=== PATIENT | female | born 1975 | race Caucasian/White ===

== ENCOUNTER 2017-03-23 00:41 | Emergency (ER) | payer OTHER, MEDICAID ==
[~2017-03-23] VITALS: Ht 170.2 cm; Wt 97.5 kg
[~2017-03-23 00:41] MED LIST: ACETAMINOPHEN-1 EAC1 PO; ACETAMINOPHEN325 M1 PO; ACTICIN 5% CREA60 G1 TOP; ADULT LOW DOSE81 MG PO; AFRIN SALINE NA30 ML NS; ALPRAZOLAM 0.50.5 M1; ALPRAZOLAM 0.50.5 M1 PO; ALPRAZOLAM 0.50.5 MG; ALPRAZOLAM0.5 M1; AMITRIPTYLINE H10 M1 PO; AMLODIPINE BESY10 MG; ARTHRITIS; ASPIR 8181 M1 PO; ASPIRIN EC81 M1; ASPIRIN EC81 M1 PO; ASPIRIN325; AURALGAN EAR DR14 ML; BACTROBAN CREAM30 G1 TOP; BENADRYL25 MG PO; BLOOD PRESSURE MEDS; BUTALB-APAP-CA1 EACH PO; CALCIUM 500 +1 EAC5; CALCIUM 500+VI1 EACH; CAPOTEN100 MG PO; CARAFATE1 GM/10 ML PO; CARISOPRODOL 3350 M1; CARVEDILOL12.5 MG; CATAPRES-TTS 10.1 M1; CATAPRES-TTS 10.1 MG; CATAPRES-TTS 20.2 MG; CEPHALEXIN 250250 M1; CEPHALEXIN 500500 M1; CHLORTHALIDONE25 MG; CIPRO500 MG PO; CIPROFLOXACIN250 M2; CIPROFLOXACIN500 M1 PO; CITRATE OF MAG296 ML; CLEOCIN HCL150 MG PO; CLEOCIN HCL300 MG PO; CLINDAMYCIN; CLONIDINE HCL0.2 M2 PO; CLONIDINE PO; CLONIDINE0.1; COLACE100 MG PO; COREG CR20 MG; COREG25 MG PO; CYCLOBENZAPRINE5 MG PO; DARVOCET-N 1001 EAC1 PO; DELTASONE; DEPAKOTE ER250 MG PO; DIFLUCAN150 MG PO; DILTIAZEM 24HR300 M1; DITROPAN XL5 M1; DITROPAN XL5 M1 PO; DOXYCYCLINE; DOXYCYCLINE 10100 MG PO; DYNACIN100 MG PO; FENOFIBRATE160 MG; FLAGYL500 MG PO; FLEXERIL PO; GLUCOPHAGE XR500 MG; GLUCOPHAGE500 MG; GOLYTELY4000 M1 PO; HIBICLENS120 ML TP; HYDRALAZINE 10M10 MG GT; HYDRALAZINE 2525 M1 PO; HYDRALAZINE 5050 M1 PO; HYDRALAZINE 5050 MG PO; HYDRALAZINE HC100 MG; HYDROCHLOROTH12.5 MG PO; HYDROCHLOROTHIA25 M1 PO; HYDROCHLOROTHIA25 M2; HYDROCHLOROTHIA25 M2 PO; HYDROCODONE-AP1 EAC6 PO; HYDROXYCHLOROQ200 M1; HYDROXYCHLOROQ200 M1 PO; HYDROXYZINE HCL25 M1 PO; IBUPROFEN 800800 MG PO; KEFLEX500 M1 PO; KEFLEX500 MG PO; KLOR-CON M2020 MEQ PO; LEVAQUIN; LEVAQUIN 500 M500 M2 PO; LEVAQUIN 500 M500 MG PO; LEXAPRO 10 MG T10 MG PO; LISINOPRIL40 MG; LISINOPRIL40 MG PO; LITHIUM; LITHOBID; MACROBID 100 M100 M1 PO; MEDROLDOSEPACK PO; MIRALAX17 GM PO; MOBIC7.5 M1 PO; NASONEX17 GM; NASONEX17 GM NS; NEURONTIN 300300 M1; NEURONTIN 300300 M1 PO; NEXIUM 40 MG CA40 M1; NEXIUM40 MG; NICOTINE TRANSD14 M1 TOP; NORCO 5-325 TA1 EACH PO; NORVASC10 MG; NORVASC5 MG; NYSTATIN 1100000 U/M PO; OCEAN45 ML NS; ORAPRED ODT10 MG; OXYBUTYNIN ER 55 M1; PERCOCET 5-3251 EACH PO; PHENAZOPYRIDIN200 M2 PO; POTASSIUM20 PO; PREDNISOLONE 5 M5 M1 PO; PREDNISONE 10 M10 M1; PREDNISONE 10 M10 M1 PO; PREDNISONE 20 M20 M1; PREDNISONE 20 M20 M1 PO; PREDNISONE50 MG PO; PROAIR HFA8.5 GM; PROAIR HFA8.5 GM IH; PROMETHAZINE/C118 ML; PROPOXY-N/APAP1 TAB; PROTONIX40 M2 PO; SERTRALINE HCL50 MG; SIMVASTATIN20 MG; SIMVASTATIN40 MG; SOMA250 MG; STERILE SALINE126 ML NASAL; TESSALON PERLE100 MG; TESSALON PERLE100 MG PO; TREXALL5 MG; ULTRACET TABLE1 EACH PO; VICODIN; VICODIN 5-5001 EACH; VICODIN 5-5001 EACH PO; XANAX 0.5 MG0.5 M1; XANAX 0.5 MG0.5 MG PO; ZOCOR 20 MG TAB20 M1; ZOCOR 20 MG TAB20 M1 PO; ZOFRAN4 MG PO; ZOLOFT; ZOLOFT 50 MG TA50 M1; ZPAK PO; [UNRECOGNIZED DRUG - OTHER] PO
[2017-03-23] MEDS ORDERED: POTASSIUM20 (00:55)
[2017-03-23] MEDS ORDERED: ULTRAM 50MG TAB50 MG (00:56)
[2017-03-23 01:48] LABS: INFLUENZA A ANTIGEN None Detected (None Detect); INFLUENZA B ANTIGEN None Detected (None Detect)
[2017-03-23] MEDS ORDERED: TESSALON PERLE100 MG PO (01:51)
[2017-03-23] MEDS ORDERED: ZOFRAN ODT4 MG PO (01:51)
[2017-03-23 02:33] VITALS: BP 137/81
== END 2017-03-23 02:33 | disposition home or self-care (01) ==
LOC: M.ERS 00:41
PROVIDERS: Emergency Medicine Emergency Medical Services
DX: B34.9 Viral infection, unspecified (principal); I10 Essential (primary) hypertension; I25.2 Old myocardial infarction; F32.9 Major depressive disorder, single episode, unspecified; M32.9 Systemic lupus erythematosus, unspecified; F17.210 Nicotine dependence, cigarettes, uncomplicated; Z98.890 Other specified postprocedural states; Z86.73 Personal history of transient ischemic attack (TIA), and cerebral infarction without residual deficits; Z90.710 Acquired absence of both cervix and uterus; Z88.1 Allergy status to other antibiotic agents; Z88.2 Allergy status to sulfonamides; Z88.0 Allergy status to penicillin

== ENCOUNTER 2017-04-17 20:05 | Emergency (ER) | payer OTHER, MEDICAID ==
[~2017-04-17] VITALS: Ht 170.2 cm; Wt 99.8 kg
[~2017-04-17 20:05] MED LIST changes: +POTASSIUM20; +ULTRAM 50MG TAB50 MG; +ZOFRAN ODT4 MG PO
[2017-04-17 22:00] VITALS: BP 131/86
== END 2017-04-17 22:00 | disposition home or self-care (01) ==
LOC: M.ERS 20:05
DX: L91.8 Other hypertrophic disorders of the skin (principal); I10 Essential (primary) hypertension; M32.9 Systemic lupus erythematosus, unspecified; F32.9 Major depressive disorder, single episode, unspecified; L40.9 Psoriasis, unspecified; F17.210 Nicotine dependence, cigarettes, uncomplicated; Z86.73 Personal history of transient ischemic attack (TIA), and cerebral infarction without residual deficits; Z90.89 Acquired absence of other organs; Z86.14 Personal history of Methicillin resistant Staphylococcus aureus infection; Z90.49 Acquired absence of other specified parts of digestive tract; Z88.1 Allergy status to other antibiotic agents; Z88.0 Allergy status to penicillin; Z88.2 Allergy status to sulfonamides

== ENCOUNTER 2017-04-27 22:10 | Emergency (ER) | payer OTHER, MEDICAID ==
[~2017-04-27] VITALS: Ht 170.2 cm; Wt 99.8 kg
[2017-04-28 00:04] VITALS: BP 138/62
== END 2017-04-28 00:05 | disposition home or self-care (01) ==
LOC: M.ERS 22:10
DX: R51 Headache (principal); F17.210 Nicotine dependence, cigarettes, uncomplicated; F10.99 Alcohol use, unspecified with unspecified alcohol-induced disorder; I10 Essential (primary) hypertension; I25.2 Old myocardial infarction; F32.9 Major depressive disorder, single episode, unspecified; Z86.14 Personal history of Methicillin resistant Staphylococcus aureus infection; Z90.710 Acquired absence of both cervix and uterus; Z98.890 Other specified postprocedural states; Z88.2 Allergy status to sulfonamides; Z88.0 Allergy status to penicillin; Z88.1 Allergy status to other antibiotic agents; Z90.49 Acquired absence of other specified parts of digestive tract

== ENCOUNTER 2017-07-04 13:00 | Emergency (ER) | payer OTHER, MEDICAID ==
[~2017-07-04] VITALS: Ht 170.2 cm; Wt 104.3 kg
[2017-07-04] MEDS ORDERED: WELLBUTRIN XL300 MG PO (13:10)
[2017-07-04] MEDS ORDERED: KEFLEX500 M1 PO (13:12)
[2017-07-04 13:16] VITALS: BP 184/103
== END 2017-07-04 13:18 | disposition home or self-care (01) ==
LOC: M.ERS 13:00
DX: K08.89 Other specified disorders of teeth and supporting structures (principal); I21.9 Acute myocardial infarction, unspecified; F31.9 Bipolar disorder, unspecified; I10 Essential (primary) hypertension; F17.210 Nicotine dependence, cigarettes, uncomplicated; Z90.710 Acquired absence of both cervix and uterus; Z90.49 Acquired absence of other specified parts of digestive tract; Z86.73 Personal history of transient ischemic attack (TIA), and cerebral infarction without residual deficits; Z86.14 Personal history of Methicillin resistant Staphylococcus aureus infection; Z88.0 Allergy status to penicillin; Z88.1 Allergy status to other antibiotic agents

== ENCOUNTER 2017-10-26 22:10 | Emergency (ER) | payer OTHER, MEDICAID ==
[~2017-10-26] VITALS: Ht 170.2 cm; Wt 104.3 kg
[~2017-10-26 22:10] MED LIST changes: +WELLBUTRIN XL300 MG PO
[2017-10-26] MEDS ORDERED: DOXYCYCLINE 10100 M1 PO (22:48)
[2017-10-26 23:47] VITALS: BP 120/65
== END 2017-10-26 23:50 | disposition home or self-care (01) ==
LOC: M.ERS 22:10
DX: N61.1 Abscess of the breast and nipple (principal); H66.93 Otitis media, unspecified, bilateral; I10 Essential (primary) hypertension; F32.9 Major depressive disorder, single episode, unspecified; M32.9 Systemic lupus erythematosus, unspecified; F17.210 Nicotine dependence, cigarettes, uncomplicated; Z86.73 Personal history of transient ischemic attack (TIA), and cerebral infarction without residual deficits; Z90.710 Acquired absence of both cervix and uterus; Z90.49 Acquired absence of other specified parts of digestive tract; Z86.14 Personal history of Methicillin resistant Staphylococcus aureus infection; Z88.0 Allergy status to penicillin; Z88.1 Allergy status to other antibiotic agents; Z88.2 Allergy status to sulfonamides

== ENCOUNTER 2018-01-17 20:32 | Emergency (ER) | payer OTHER, MEDICAID ==
[~2018-01-17] VITALS: Ht 167.6 cm; Wt 104.3 kg
[~2018-01-17 20:32] MED LIST changes: +DOXYCYCLINE 10100 M1 PO
[2018-01-17] MEDS ORDERED: DOXYCYCLINE 10100 M2 PO (21:04)
[2018-01-17] MEDS ORDERED: PROAIR HFA8.5 GM INH (21:04)
[2018-01-17] MEDS ORDERED: TESSALON PERLE100 MG PO (21:04)
[2018-01-17 21:33] VITALS: BP 197/106
== END 2018-01-17 21:35 | disposition home or self-care (01) ==
LOC: M.ERS 20:32
DX: R05 Cough (principal); N73.9 Female pelvic inflammatory disease, unspecified; I10 Essential (primary) hypertension; F32.9 Major depressive disorder, single episode, unspecified; M32.9 Systemic lupus erythematosus, unspecified; Z90.49 Acquired absence of other specified parts of digestive tract; Z90.710 Acquired absence of both cervix and uterus; F17.210 Nicotine dependence, cigarettes, uncomplicated; Z88.0 Allergy status to penicillin; Z88.1 Allergy status to other antibiotic agents; Z88.2 Allergy status to sulfonamides

== ENCOUNTER 2018-01-28 20:01 | Emergency (ER) | payer OTHER, MEDICAID ==
[~2018-01-28] VITALS: Ht 170.2 cm; Wt 104.3 kg
[~2018-01-28 20:01] MED LIST changes: +DOXYCYCLINE 10100 M2 PO; +PROAIR HFA8.5 GM INH
[2018-01-28] MEDS ORDERED: CBD OIL (20:16)
[2018-01-28] MEDS ORDERED: TRIAMCINOLONE A80 G2 TOP (20:49)
[2018-01-28] MEDS ORDERED: DOXYCYCLINE 10100 MG PO (20:49)
[2018-01-28 21:15] VITALS: BP 187/105
== END 2018-01-28 21:16 | disposition home or self-care (01) ==
LOC: M.ERS 20:01
DX: N61.1 Abscess of the breast and nipple (principal); L40.9 Psoriasis, unspecified; I10 Essential (primary) hypertension; F32.9 Major depressive disorder, single episode, unspecified; I25.2 Old myocardial infarction; M32.9 Systemic lupus erythematosus, unspecified; Z90.710 Acquired absence of both cervix and uterus; Z90.49 Acquired absence of other specified parts of digestive tract; F17.210 Nicotine dependence, cigarettes, uncomplicated; Z88.0 Allergy status to penicillin; Z88.2 Allergy status to sulfonamides; Z88.1 Allergy status to other antibiotic agents

== ENCOUNTER 2018-05-05 16:25 | Emergency (ER) | payer OTHER, MEDICAID ==
[~2018-05-05] VITALS: Ht 160 cm; Wt 90.7 kg
[~2018-05-05 16:25] MED LIST changes: +CBD OIL; +TRIAMCINOLONE A80 G2 TOP
[2018-05-05] MEDS ORDERED: CEFDINIR125 MG/5 M PO (17:25)
[2018-05-05] MEDS ORDERED: ROBAXIN 750 MG750 M1 PO (17:28)
[2018-05-05 17:39] VITALS: BP 180/98
== END 2018-05-05 17:40 | disposition home or self-care (01) ==
LOC: M.ERS 16:25
DX: S46.812A Strain of other muscles, fascia and tendons at shoulder and upper arm level, left arm, initial encounter (principal); F17.210 Nicotine dependence, cigarettes, uncomplicated; I10 Essential (primary) hypertension; M32.9 Systemic lupus erythematosus, unspecified; F32.9 Major depressive disorder, single episode, unspecified; Z88.1 Allergy status to other antibiotic agents; Z88.2 Allergy status to sulfonamides; Z88.0 Allergy status to penicillin; Z90.710 Acquired absence of both cervix and uterus; Z90.89 Acquired absence of other organs; Z90.49 Acquired absence of other specified parts of digestive tract; Z86.73 Personal history of transient ischemic attack (TIA), and cerebral infarction without residual deficits; W00.0XXA Fall on same level due to ice and snow, initial encounter; Y92.89 Other specified places as the place of occurrence of the external cause; Y93.89 Activity, other specified; Y99.8 Other external cause status

== ENCOUNTER 2018-06-19 00:26 | Emergency (ER) | payer OTHER, MEDICAID ==
[~2018-06-19] VITALS: Ht 170.2 cm; Wt 99.8 kg
[~2018-06-19 00:26] MED LIST changes: +CEFDINIR125 MG/5 M PO; +ROBAXIN 750 MG750 M1 PO
[2018-06-19] MEDS ORDERED: VITAMIN D1000 UNI1 (00:39)
[2018-06-19] MEDS ORDERED: ARMOUR THYROID120 M1 (00:40)
[2018-06-19] MEDS ORDERED: ZPAK PO (00:44)
[2018-06-19] MEDS ORDERED: PREDNISONE 20 M20 M1 PO (00:44)
[2018-06-19] MEDS ORDERED: PROMETH-CODEIN 65 ML PO (00:44)
[2018-06-19 01:15] VITALS: BP 183/107
== END 2018-06-19 01:15 | disposition home or self-care (01) ==
LOC: M.ERS 00:26
DX: J20.9 Acute bronchitis, unspecified (principal); I10 Essential (primary) hypertension; M32.9 Systemic lupus erythematosus, unspecified; L40.9 Psoriasis, unspecified; F32.9 Major depressive disorder, single episode, unspecified; F17.210 Nicotine dependence, cigarettes, uncomplicated; Z90.710 Acquired absence of both cervix and uterus; Z90.49 Acquired absence of other specified parts of digestive tract; Z98.890 Other specified postprocedural states; Z86.14 Personal history of Methicillin resistant Staphylococcus aureus infection; Z86.73 Personal history of transient ischemic attack (TIA), and cerebral infarction without residual deficits; Z88.1 Allergy status to other antibiotic agents; Z88.2 Allergy status to sulfonamides; Z88.0 Allergy status to penicillin

== ENCOUNTER 2018-07-01 02:58 | Emergency (ER) | payer OTHER, MEDICAID ==
[~2018-07-01] VITALS: Ht 170.2 cm; Wt 99.8 kg
[~2018-07-01 02:58] MED LIST changes: +ARMOUR THYROID120 M1; +PROMETH-CODEIN 65 ML PO; +VITAMIN D1000 UNI1
[2018-07-01] MEDS ORDERED: PREDNISONE50 MG PO (03:30)
[2018-07-01] MEDS ORDERED: [UNRECOGNIZED DRUG - REMARK] (04:00)
[2018-07-01 04:09] VITALS: BP 195/95
--- NOTE | 2018-07-01 10:48 | EKG ---
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
== END 2018-07-01 04:11 | disposition home or self-care (01) ==
LOC: M.ERS 02:58
DX: I10 Essential (primary) hypertension (principal); R55 Syncope and collapse; F17.210 Nicotine dependence, cigarettes, uncomplicated; M32.9 Systemic lupus erythematosus, unspecified; F32.9 Major depressive disorder, single episode, unspecified; L40.9 Psoriasis, unspecified; Z88.1 Allergy status to other antibiotic agents; Z88.0 Allergy status to penicillin; Z88.2 Allergy status to sulfonamides; Z86.73 Personal history of transient ischemic attack (TIA), and cerebral infarction without residual deficits; Z90.710 Acquired absence of both cervix and uterus; Z90.89 Acquired absence of other organs; Z90.49 Acquired absence of other specified parts of digestive tract

== ENCOUNTER 2018-07-05 15:39 | Emergency (ER) | payer OTHER, MEDICAID ==
[~2018-07-05] VITALS: Ht 170.2 cm; Wt 99.8 kg
[~2018-07-05 15:39] MED LIST changes: +[UNRECOGNIZED DRUG - REMARK]
[2018-07-05 16:17] LABS: HEMATOCRIT 46.4 % (37.0-47.0); HEMOGLOBIN 16.1 gm/dL (12.0-15.0); MCH 32.3 pg (26.0-34.0); MCHC 34.7 g/dL (28.0-37.0); MCV 93.2 fL (80.0-100.0); MPV 10.2 fl. (7.2-11.1); RBC 4.98 mil/uL (4.20-5.00); RDW-CV 13.8 % (10.5-14.5); WBC 20.6 thou/uL (4.0-11.0)
[2018-07-05 16:31] LABS: ALBUMIN 3.4 g/dL (3.4-5.0); CREATININE 1.1 mg/dL (0.6-1.3); POTASSIUM 3.6 mmol/L (3.5-5.1); TOTAL BILIRUBIN 0.3 mg/dL (<0.1-1.0); TOTAL PROTEIN 7.3 g/dL (6.4-8.2)
[2018-07-05] MEDS ORDERED: HYDROCODONE-AP1 EAC6 PO (16:41)
[2018-07-05] MEDS ORDERED: FLEXERIL PO (16:41)
[2018-07-05 16:58] VITALS: BP 184/87
== END 2018-07-05 16:59 | disposition home or self-care (01) ==
LOC: M.ERS 15:39
PROVIDERS: Emergency Medicine Emergency Medical Services
DX: M79.662 Pain in left lower leg (principal); L40.9 Psoriasis, unspecified; M32.9 Systemic lupus erythematosus, unspecified; F32.9 Major depressive disorder, single episode, unspecified; I10 Essential (primary) hypertension; F17.210 Nicotine dependence, cigarettes, uncomplicated; Z88.0 Allergy status to penicillin; Z88.1 Allergy status to other antibiotic agents; Z88.2 Allergy status to sulfonamides; Z86.73 Personal history of transient ischemic attack (TIA), and cerebral infarction without residual deficits; Z90.710 Acquired absence of both cervix and uterus; Z98.890 Other specified postprocedural states; Z90.49 Acquired absence of other specified parts of digestive tract; Z86.14 Personal history of Methicillin resistant Staphylococcus aureus infection

== ENCOUNTER 2018-07-30 19:57 | Emergency (ER) | payer OTHER, MEDICAID ==
[~2018-07-30] VITALS: Ht 170.2 cm; Wt 99.8 kg
[2018-07-30] MEDS ORDERED: CLARITHROMYCIN250 M2 PO (20:21)
[2018-07-30] MEDS ORDERED: TESSALON PERLE100 MG PO (20:32)
[2018-07-30 20:37] VITALS: BP 196/101
== END 2018-07-30 20:38 | disposition home or self-care (01) ==
LOC: M.ERS 19:57
DX: J02.9 Acute pharyngitis, unspecified (principal); K04.7 Periapical abscess without sinus; F17.210 Nicotine dependence, cigarettes, uncomplicated; I10 Essential (primary) hypertension; M32.9 Systemic lupus erythematosus, unspecified; F32.9 Major depressive disorder, single episode, unspecified; L40.9 Psoriasis, unspecified; Z90.710 Acquired absence of both cervix and uterus; Z90.89 Acquired absence of other organs; Z90.49 Acquired absence of other specified parts of digestive tract; Z88.1 Allergy status to other antibiotic agents; Z88.0 Allergy status to penicillin; Z88.2 Allergy status to sulfonamides; Z86.73 Personal history of transient ischemic attack (TIA), and cerebral infarction without residual deficits

== ENCOUNTER 2018-09-05 14:08 | Emergency (ER) | payer OTHER, MEDICAID ==
[~2018-09-05] VITALS: Ht 170.2 cm; Wt 99.8 kg
[~2018-09-05 14:08] MED LIST changes: +CLARITHROMYCIN250 M2 PO
[2018-09-05] MEDS ORDERED: TOBRAMYCIN SULFA5 M1 OPHTHALMIC (14:45)
[2018-09-05 15:14] VITALS: BP 144/93
== END 2018-09-05 15:15 | disposition home or self-care (01) ==
LOC: M.ERS 14:08
DX: S05.91XA Unspecified injury of right eye and orbit, initial encounter (principal); I10 Essential (primary) hypertension; M32.9 Systemic lupus erythematosus, unspecified; L40.9 Psoriasis, unspecified; F32.9 Major depressive disorder, single episode, unspecified; F17.210 Nicotine dependence, cigarettes, uncomplicated; Z86.73 Personal history of transient ischemic attack (TIA), and cerebral infarction without residual deficits; Z98.890 Other specified postprocedural states; Z90.710 Acquired absence of both cervix and uterus; Z90.49 Acquired absence of other specified parts of digestive tract; Z86.14 Personal history of Methicillin resistant Staphylococcus aureus infection; Z88.0 Allergy status to penicillin; Z88.2 Allergy status to sulfonamides; Z88.1 Allergy status to other antibiotic agents; W22.8XXA Striking against or struck by other objects, initial encounter; Y93.89 Activity, other specified; Y92.89 Other specified places as the place of occurrence of the external cause; Y99.8 Other external cause status

== ENCOUNTER 2018-11-17 22:23 | Emergency (ER) | payer OTHER, MEDICAID ==
[~2018-11-17] VITALS: Ht 170.2 cm; Wt 104.3 kg
[~2018-11-17 22:23] MED LIST changes: +TOBRAMYCIN SULFA5 M1 OPHTHALMIC
[2018-11-18 00:11] LABS: ABSOLUTE BASOPHILS 0.2 thou/uL (0.0-0.2); ABSOLUTE EOSINOPHILS 0.3 thou/uL (0.0-0.7); ABSOLUTE LYMPHOCYTES 2.9 thou/uL (0.8-5.3); ABSOLUTE MONOCYTES 1.3 thou/uL (0.0-1.2); ABSOLUTE NEUTROPHILS 12.2 thou/uL (1.6-8.1); HEMATOCRIT 45.6 % (37.0-47.0); HEMOGLOBIN 15.9 gm/dL (12.0-15.0); LYMPHOCYTES 17.2 %; MCH 33.4 pg (26.0-34.0); MCHC 34.9 g/dL (28.0-37.0); MCV 95.5 fL (80.0-100.0); MONOCYTES 7.8 %; MPV 10.2 fl. (7.2-11.1); NUCLEATED RBCS 0 /100WBC; PLATELET COUNT* 191 thou/uL (150-400); RBC 4.77 mil/uL (4.20-5.00); RDW-CV 13.3 % (10.5-14.5)
[2018-11-18 00:19] LABS: CALCIUM 8.4 mg/dL (8.5-10.1); CREATININE 0.9 mg/dL (0.6-1.3); POTASSIUM 3.7 mmol/L (3.5-5.1)
[2018-11-18 00:32] LABS: ALBUMIN 3.1 g/dL (3.4-5.0); TOTAL BILIRUBIN 0.4 mg/dL (<0.1-1.0); TOTAL PROTEIN 6.7 g/dL (6.4-8.2)
[2018-11-18 00:49] VITALS: BP 180/94
== END 2018-11-18 00:51 | disposition home or self-care (01) ==
LOC: M.ERS 22:23
PROVIDERS: Personal Emergency Response Attendant
DX: S80.11XA Contusion of right lower leg, initial encounter (principal); I25.2 Old myocardial infarction; I10 Essential (primary) hypertension; F32.9 Major depressive disorder, single episode, unspecified; M32.9 Systemic lupus erythematosus, unspecified; F17.210 Nicotine dependence, cigarettes, uncomplicated; Z90.89 Acquired absence of other organs; Z86.73 Personal history of transient ischemic attack (TIA), and cerebral infarction without residual deficits; Z86.14 Personal history of Methicillin resistant Staphylococcus aureus infection; Z90.49 Acquired absence of other specified parts of digestive tract; Z90.710 Acquired absence of both cervix and uterus; Z88.1 Allergy status to other antibiotic agents; Z88.0 Allergy status to penicillin; Z88.2 Allergy status to sulfonamides; V89.2XXA Person injured in unspecified motor-vehicle accident, traffic, initial encounter; Y92.89 Other specified places as the place of occurrence of the external cause; Y93.89 Activity, other specified; Y99.8 Other external cause status

== ENCOUNTER 2018-12-21 21:48 | Emergency (ER) | payer OTHER, MEDICAID ==
[~2018-12-21] VITALS: Ht 170.2 cm; Wt 95.3 kg
[2018-12-21] MEDS ORDERED: PROAIR HFA8.5 GM INH (23:36)
[2018-12-21] MEDS ORDERED: PREDNISONE50 MG PO (23:38)
[2018-12-21] MEDS ORDERED: TESSALON PERLE100 M1 PO (23:38)
[2018-12-21 23:47] VITALS: BP 136/79
== END 2018-12-21 23:48 | disposition home or self-care (01) ==
LOC: M.ERS 21:48
DX: J06.9 Acute upper respiratory infection, unspecified (principal); I10 Essential (primary) hypertension; M32.9 Systemic lupus erythematosus, unspecified; L40.9 Psoriasis, unspecified; F32.9 Major depressive disorder, single episode, unspecified; F17.210 Nicotine dependence, cigarettes, uncomplicated; Z86.73 Personal history of transient ischemic attack (TIA), and cerebral infarction without residual deficits; Z90.49 Acquired absence of other specified parts of digestive tract; Z90.710 Acquired absence of both cervix and uterus; Z88.0 Allergy status to penicillin; Z88.1 Allergy status to other antibiotic agents; Z88.2 Allergy status to sulfonamides

== ENCOUNTER 2019-02-13 23:06 | Emergency (ER) | payer OTHER, MEDICAID ==
[~2019-02-13] VITALS: Ht 170.2 cm; Wt 83.9 kg
[~2019-02-13 23:06] MED LIST changes: +TESSALON PERLE100 M1 PO
[2019-02-13] MEDS ORDERED: NORVASC5 M1 PO (23:38)
[2019-02-13] MEDS ORDERED: CARVEDILOL25 MG PO (23:38)
[2019-02-13] MEDS ORDERED: FENOFIBRATE160 MG PO (23:38)
[2019-02-13] MEDS ORDERED: LORCET 5-325 M1 EACH PO (23:38)
[2019-02-13] MEDS ORDERED: PROAIR HFA8.5 GM INH (23:38)
[2019-02-13] MEDS ORDERED: SIMVASTATIN40 MG PO (23:38)
[2019-02-13] MEDS ORDERED: HYDROXYZINE HCL25 M2 PO (23:48)
[2019-02-13 23:59] VITALS: BP 194/101
== END 2019-02-13 23:57 | disposition home or self-care (01) ==
LOC: M.ERS 23:06
DX: M25.562 Pain in left knee (principal); I10 Essential (primary) hypertension; I25.2 Old myocardial infarction; F32.9 Major depressive disorder, single episode, unspecified; F17.210 Nicotine dependence, cigarettes, uncomplicated; Z90.89 Acquired absence of other organs; Z86.14 Personal history of Methicillin resistant Staphylococcus aureus infection; Z90.710 Acquired absence of both cervix and uterus; Z88.1 Allergy status to other antibiotic agents; Z88.0 Allergy status to penicillin; Z88.2 Allergy status to sulfonamides

== ENCOUNTER → 2019-02-27 | Outpatient (CLI) | payer OTHER, MEDICAID ==
[~2019-02-27] MED LIST changes: +CARVEDILOL25 MG PO; +FENOFIBRATE160 MG PO; +HYDROXYZINE HCL25 M2 PO; +LORCET 5-325 M1 EACH PO; +NORVASC5 M1 PO; +SIMVASTATIN40 MG PO
== END ==
LOC: M.MRI 13:19
DX: M25.462 Effusion, left knee (principal)

== ENCOUNTER 2019-03-25 15:32 | Emergency (ER) | payer OTHER, MEDICAID ==
[~2019-03-25] VITALS: Ht 170.2 cm; Wt 99.8 kg
[2019-03-25 16:03] LABS: INFLUENZA A ANTIGEN Positive (Negative); INFLUENZA B ANTIGEN Negative (Negative)
[2019-03-25 16:10] LABS: CALCIUM 8.7 mg/dL (8.5-10.1); POTASSIUM 3.2 mmol/L (3.5-5.1)
[2019-03-25 16:15] LABS: ALBUMIN 3.3 g/dL (3.4-5.0); TOTAL BILIRUBIN 0.4 mg/dL (<0.1-1.0); TOTAL PROTEIN 7.1 g/dL (6.4-8.2)
[2019-03-25 16:17] LABS: URINE BILIRUBIN NEGATIVE (Negative); URINE BLOOD TRACE (Negative); URINE CLARITY CLEAR; URINE COLOR YELLOW; URINE GLUCOSE-RANDOM NEGATIVE (Negative); URINE KETONES NEGATIVE (Negative); URINE LEUKOCYTES-REFLEX NEGATIVE (Negative); URINE NITRITE-REFLEX NEGATIVE (Negative); URINE PROTEIN NEGATIVE (Negative); URINE UROBILINOGEN 0.2 E.U./dl (0.2-1.0)
[2019-03-25 16:24] LABS: ABSOLUTE BASOPHILS 0.1 thou/uL (0.0-0.2); ABSOLUTE EOSINOPHILS 0.1 thou/uL (0.0-0.7); ABSOLUTE MONOCYTES 1.3 thou/uL (0.0-1.2); ABSOLUTE NEUTROPHILS 8.2 thou/uL (1.6-8.1); BASOPHILS 0.7 %; EOSINOPHILS 1.3 %; HEMATOCRIT 44.6 % (37.0-47.0); HEMOGLOBIN 16.1 gm/dL (12.0-15.0); LYMPHOCYTES 8.9 %; MCH 33.8 pg (26.0-34.0); MCHC 36.1 g/dL (28.0-37.0); MCV 93.5 fL (80.0-100.0); MONOCYTES 12.5 %; MPV 9.6 fl. (7.2-11.1); NUCLEATED RBCS 0 /100WBC; PLATELET COUNT* 183 thou/uL (150-400); POLYS 76.6 %; RBC 4.77 mil/uL (4.20-5.00); RDW-CV 13.3 % (10.5-14.5); WBC 10.7 thou/uL (4.0-11.0)
[2019-03-25 17:27] LABS: PLATELET ESTIMATE ADEQUATE
[2019-03-25 17:28] LABS: MACROCYTES Occasional
[2019-03-25] MEDS ORDERED: IBUPROFEN 800800 MG PO (17:29)
[2019-03-25] MEDS ORDERED: TAMIFLU75 MG PO (17:29)
[2019-03-25] MEDS ORDERED: MEDROLDOSEPACK PO (17:29)
[2019-03-25 17:38] VITALS: BP 175/85
== END 2019-03-25 17:39 | disposition home or self-care (01) ==
LOC: M.ERS 15:32
PROVIDERS: Personal Emergency Response Attendant
DX: E86.0 Dehydration (principal); J11.1 Influenza due to unidentified influenza virus with other respiratory manifestations; M32.9 Systemic lupus erythematosus, unspecified; I10 Essential (primary) hypertension; F17.210 Nicotine dependence, cigarettes, uncomplicated; Z88.0 Allergy status to penicillin; Z88.2 Allergy status to sulfonamides; Z88.1 Allergy status to other antibiotic agents; Z86.73 Personal history of transient ischemic attack (TIA), and cerebral infarction without residual deficits; Z90.710 Acquired absence of both cervix and uterus; Z90.89 Acquired absence of other organs; Z86.14 Personal history of Methicillin resistant Staphylococcus aureus infection

== ENCOUNTER 2019-04-14 22:53 | Emergency (ER) | payer OTHER, MEDICAID ==
[~2019-04-14] VITALS: Ht 170.2 cm; Wt 99.8 kg
[~2019-04-14 22:53] MED LIST changes: +TAMIFLU75 MG PO
[2019-04-15] MEDS ORDERED: BUTALB-APAP-CA1 EACH PO (00:20)
[2019-04-15 00:43] VITALS: BP 155/96
== END 2019-04-15 00:45 | disposition home or self-care (01) ==
LOC: M.ERS 22:53
DX: I10 Essential (primary) hypertension (principal); R51 Headache; I25.2 Old myocardial infarction; F32.9 Major depressive disorder, single episode, unspecified; F17.210 Nicotine dependence, cigarettes, uncomplicated; Z86.73 Personal history of transient ischemic attack (TIA), and cerebral infarction without residual deficits; Z90.89 Acquired absence of other organs; Z86.14 Personal history of Methicillin resistant Staphylococcus aureus infection; Z90.49 Acquired absence of other specified parts of digestive tract; Z88.1 Allergy status to other antibiotic agents; Z88.2 Allergy status to sulfonamides; Z88.0 Allergy status to penicillin

== ENCOUNTER 2019-04-21 19:34 | Emergency (ER) | payer OTHER, MEDICAID ==
[~2019-04-21] VITALS: Ht 170.2 cm; Wt 99.8 kg
[2019-04-21 21:37] LABS: URINE BLOOD NEGATIVE (Negative); URINE CLARITY CLEAR; URINE COLOR YELLOW; URINE GLUCOSE-RANDOM NEGATIVE (Negative); URINE KETONES TRACE (Negative); URINE LEUKOCYTES-REFLEX TRACE (Negative); URINE PROTEIN TRACE (Negative); URINE SPECIFIC GRAVITY >= 1.030 (1.005-1.030)
[2019-04-21 21:38] LABS: URINE BILIRUBIN 1+ (Negative); URINE NITRITE-REFLEX POSITIVE (Negative)
[2019-04-21 21:45] LABS: BACTERIA-REFLEX >30 Many /HPF (None Seen); HYALINE CASTS 0-3 Few /LPF (None Seen); MUCUS 4-6 Moderate strn/LPF (None Seen); SQUAMOUS >10 Many /LPF (0-3)
[2019-04-21 21:46] LABS: CRYSTALS None Seen /LPF (None Seen)
[2019-04-21 21:47] LABS: URINE RBC None Seen /HPF (0-2)
[2019-04-21 21:48] LABS: ICTOTEST (BILI CONFIRMATORY) Negative (Negative)
[2019-04-21 22:12] LABS: HEMATOCRIT 48.7 % (37.0-47.0); HEMOGLOBIN 17.1 gm/dL (12.0-15.0); MCH 33.1 pg (26.0-34.0); MCHC 35.1 g/dL (28.0-37.0); MCV 94.2 fL (80.0-100.0); MPV 9.8 fl. (7.2-11.1); NUCLEATED RBCS 0 /100WBC; PLATELET COUNT* 215 thou/uL (150-400); RBC 5.16 mil/uL (4.20-5.00); RDW-CV 14.3 % (10.5-14.5); WBC 26.2 thou/uL (4.0-11.0)
[2019-04-21 22:32] LABS: CALCIUM 8.6 mg/dL (8.5-10.1); POTASSIUM 3.3 mmol/L (3.5-5.1)
[2019-04-21 22:37] LABS: ALBUMIN 3.5 g/dL (3.4-5.0); TOTAL BILIRUBIN 0.9 mg/dL (<0.1-1.0); TOTAL PROTEIN 7.4 g/dL (6.4-8.2)
[2019-04-21 22:45] LABS: ABSOLUTE LYMPHOCYTES 1.8 thou/uL (0.8-5.3); ABSOLUTE NEUTROPHILS 23.3 thou/uL (1.6-8.1)
[2019-04-21 22:46] LABS: LARGE PLATELETS RARE; PLATELET ESTIMATE ADEQUATE
[2019-04-22] MEDS ORDERED: NORCO 5-325 TA1 EAC1 PO (01:05)
[2019-04-22] MEDS ORDERED: ZOFRAN ODT4 MG DISSOLVE (01:05)
[2019-04-22] MEDS ORDERED: CIPROFLOXACIN500 M1 PO (01:05)
[2019-04-22 01:42] VITALS: BP 172/99
--- NOTE | 2019-04-22 13:57 | EKG ---
[place] [address] ELECTROCARDIOGRAM REPORT Name: TRINITY HILLMANKATHRIN Benites Room: 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
== END 2019-04-22 01:42 | disposition home or self-care (01) ==
LOC: M.ERS 19:34
PROVIDERS: Family Medicine
DX: N39.0 Urinary tract infection, site not specified (principal); R11.2 Nausea with vomiting, unspecified; I10 Essential (primary) hypertension; L40.9 Psoriasis, unspecified; M32.9 Systemic lupus erythematosus, unspecified; F17.210 Nicotine dependence, cigarettes, uncomplicated; Z88.1 Allergy status to other antibiotic agents; Z88.0 Allergy status to penicillin; Z88.2 Allergy status to sulfonamides; Z86.73 Personal history of transient ischemic attack (TIA), and cerebral infarction without residual deficits; Z90.710 Acquired absence of both cervix and uterus; Z90.89 Acquired absence of other organs; Z86.14 Personal history of Methicillin resistant Staphylococcus aureus infection

== ENCOUNTER 2019-05-16 21:35 | Emergency (ER) | payer OTHER, MEDICAID ==
[~2019-05-16] VITALS: Ht 170.2 cm; Wt 99.8 kg
[~2019-05-16 21:35] MED LIST changes: +NORCO 5-325 TA1 EAC1 PO; +ZOFRAN ODT4 MG DISSOLVE
[2019-05-16 22:29] LABS: INFLUENZA A ANTIGEN Negative (Negative); INFLUENZA B ANTIGEN Negative (Negative)
[2019-05-16] MEDS ORDERED: KEFLEX500 M1 PO (22:49)
[2019-05-16] MEDS ORDERED: HYDROCODON-ACE1 EAC8 PO (22:49)
[2019-05-16 23:21] VITALS: BP 181/91
== END 2019-05-16 23:23 | disposition home or self-care (01) ==
LOC: M.ERS 21:35
PROVIDERS: Emergency Medicine
DX: J02.9 Acute pharyngitis, unspecified (principal); F17.210 Nicotine dependence, cigarettes, uncomplicated; I10 Essential (primary) hypertension; F32.9 Major depressive disorder, single episode, unspecified; Z90.49 Acquired absence of other specified parts of digestive tract; Z90.710 Acquired absence of both cervix and uterus; Z88.1 Allergy status to other antibiotic agents; Z88.0 Allergy status to penicillin; Z88.2 Allergy status to sulfonamides; Z86.14 Personal history of Methicillin resistant Staphylococcus aureus infection

== ENCOUNTER 2019-06-24 22:26 | Emergency (ER) | payer OTHER, MEDICAID ==
[~2019-06-24] VITALS: Ht 170.2 cm; Wt 99.8 kg
[~2019-06-24 22:26] MED LIST changes: +HYDROCODON-ACE1 EAC8 PO
[2019-06-24] MEDS ORDERED: DOXYCYCLINE 10100 MG PO (23:17)
[2019-06-24] MEDS ORDERED: BUTALB-APAP-CA1 EACH PO (23:18)
[2019-06-24 23:59] VITALS: BP 204/121
== END 2019-06-24 23:59 | disposition home or self-care (01) ==
LOC: M.ERS 22:26
DX: S40.812A Abrasion of left upper arm, initial encounter (principal); S30.811A Abrasion of abdominal wall, initial encounter; G43.909 Migraine, unspecified, not intractable, without status migrainosus; L40.9 Psoriasis, unspecified; I10 Essential (primary) hypertension; M32.9 Systemic lupus erythematosus, unspecified; Z90.89 Acquired absence of other organs; Z90.710 Acquired absence of both cervix and uterus; Z86.73 Personal history of transient ischemic attack (TIA), and cerebral infarction without residual deficits; Z86.14 Personal history of Methicillin resistant Staphylococcus aureus infection; Z88.1 Allergy status to other antibiotic agents; Z88.0 Allergy status to penicillin; Z88.2 Allergy status to sulfonamides; F17.210 Nicotine dependence, cigarettes, uncomplicated; W54.0XXA Bitten by dog, initial encounter; Y93.89 Activity, other specified; Y92.89 Other specified places as the place of occurrence of the external cause; Y99.8 Other external cause status

== ENCOUNTER 2019-07-30 17:38 | Emergency (ER) | payer OTHER, MEDICAID ==
[~2019-07-30] VITALS: Ht 170.2 cm; Wt 99.8 kg
[2019-07-30] MEDS ORDERED: ONDANSETRON HCL4 M2 PO (19:53)
[2019-07-30] MEDS ORDERED: ZANAFLEX4 MG PO (19:53)
[2019-07-30 20:07] VITALS: BP 164/109
== END 2019-07-30 20:07 | disposition home or self-care (01) ==
LOC: M.ERS 17:38
DX: S16.1XXA Strain of muscle, fascia and tendon at neck level, initial encounter (principal); S29.012A Strain of muscle and tendon of back wall of thorax, initial encounter; S60.222A Contusion of left hand, initial encounter; M25.562 Pain in left knee; L40.9 Psoriasis, unspecified; M32.9 Systemic lupus erythematosus, unspecified; F17.210 Nicotine dependence, cigarettes, uncomplicated; Z88.1 Allergy status to other antibiotic agents; Z88.0 Allergy status to penicillin; Z86.73 Personal history of transient ischemic attack (TIA), and cerebral infarction without residual deficits; Z90.710 Acquired absence of both cervix and uterus; Z90.89 Acquired absence of other organs; Z86.14 Personal history of Methicillin resistant Staphylococcus aureus infection; V49.59XA Passenger injured in collision with other motor vehicles in traffic accident, initial encounter; Y93.89 Activity, other specified; Y92.89 Other specified places as the place of occurrence of the external cause; Y99.8 Other external cause status

== ENCOUNTER 2019-08-16 22:00 | Emergency (ER) | payer OTHER, MEDICAID ==
[~2019-08-16] VITALS: Ht 170.2 cm; Wt 99.8 kg
[~2019-08-16 22:00] MED LIST changes: +ONDANSETRON HCL4 M2 PO; +ZANAFLEX4 MG PO
[2019-08-16 23:26] LABS: ABSOLUTE BASOPHILS 0.1 thou/uL (0.0-0.2); ABSOLUTE EOSINOPHILS 0.4 thou/uL (0.0-0.7); ABSOLUTE LYMPHOCYTES 2.5 thou/uL (0.8-5.3); ABSOLUTE MONOCYTES 1.1 thou/uL (0.0-1.2); ABSOLUTE NEUTROPHILS 9.2 thou/uL (1.6-8.1); BASOPHILS 1.1 %; CALCIUM 8.9 mg/dL (8.5-10.1); EOSINOPHILS 3.3 %; HEMOGLOBIN 15.4 gm/dL (12.0-15.0); LYMPHOCYTES 18.7 %; MCH 33.7 pg (26.0-34.0); MCHC 35.9 g/dL (28.0-37.0); MCV 93.8 fL (80.0-100.0); MPV 10.1 fl. (7.2-11.1); NUCLEATED RBCS 0 /100WBC; PLATELET COUNT* 182 thou/uL (150-400); POLYS 68.9 %; POTASSIUM 3.3 mmol/L (3.5-5.1); RBC 4.59 mil/uL (4.20-5.00); RDW-CV 13.3 % (10.5-14.5); WBC 13.4 thou/uL (4.0-11.0)
[2019-08-16 23:29] LABS: APTT 41.5 Seconds (25.0-31.3); PROTIME 10.6 Seconds (9.20-11.50)
[2019-08-16 23:31] LABS: ALBUMIN 3.4 g/dL (3.4-5.0); TOTAL BILIRUBIN 0.5 mg/dL (<0.1-1.0); TOTAL PROTEIN 7.1 g/dL (6.4-8.2)
[2019-08-16 23:53] LABS: URINE BILIRUBIN NEGATIVE (Negative); URINE BLOOD NEGATIVE (Negative); URINE CLARITY CLEAR; URINE COLOR YELLOW; URINE GLUCOSE-RANDOM NEGATIVE (Negative); URINE KETONES NEGATIVE (Negative); URINE LEUKOCYTES-REFLEX NEGATIVE (Negative); URINE NITRITE-REFLEX NEGATIVE (Negative); URINE PROTEIN NEGATIVE (Negative); URINE UROBILINOGEN 0.2 E.U./dl (0.2-1.0)
[2019-08-17] MEDS ORDERED: NORCO 5-325 TA1 EAC1 PO (01:22)
[2019-08-17] MEDS ORDERED: CIPRO500 M1 PO (01:22)
[2019-08-17] MEDS ORDERED: FLAGYL500 M1 PO (01:22)
[2019-08-17 01:30] VITALS: BP 184/96
== END 2019-08-17 01:30 | disposition home or self-care (01) ==
LOC: M.ERS 22:00
PROVIDERS: Emergency Medicine Emergency Medical Services
DX: K57.32 Diverticulitis of large intestine without perforation or abscess without bleeding (principal); M32.9 Systemic lupus erythematosus, unspecified; F17.210 Nicotine dependence, cigarettes, uncomplicated; I10 Essential (primary) hypertension; F32.9 Major depressive disorder, single episode, unspecified; I25.2 Old myocardial infarction; Z90.710 Acquired absence of both cervix and uterus; Z86.14 Personal history of Methicillin resistant Staphylococcus aureus infection; Z90.89 Acquired absence of other organs; Z88.0 Allergy status to penicillin; Z88.2 Allergy status to sulfonamides; Z88.1 Allergy status to other antibiotic agents

== ENCOUNTER 2019-09-02 18:09 | Emergency (ER) | payer OTHER, MEDICAID ==
[~2019-09-02] VITALS: Ht 170.2 cm; Wt 99.8 kg
[~2019-09-02 18:09] MED LIST changes: +CIPRO500 M1 PO; +FLAGYL500 M1 PO
[2019-09-02 20:33] VITALS: BP 194/113
[2019-09-02] MEDS ORDERED: HYDROCORTISONE3011 TOP (22:30)
[2019-09-02] MEDS ORDERED: NYSTATIN 100,0015 G1 TOP (22:30)
[2019-09-02] MEDS ORDERED: MEDROLDOSEPACK PO (22:30)
== END 2019-09-02 20:33 | disposition home or self-care (01) ==
LOC: M.ERS 18:09
DX: L25.9 Unspecified contact dermatitis, unspecified cause (principal); B37.89 Other sites of candidiasis; I10 Essential (primary) hypertension; F32.9 Major depressive disorder, single episode, unspecified; F17.210 Nicotine dependence, cigarettes, uncomplicated; Z86.73 Personal history of transient ischemic attack (TIA), and cerebral infarction without residual deficits; Z90.710 Acquired absence of both cervix and uterus; Z90.49 Acquired absence of other specified parts of digestive tract; Z86.14 Personal history of Methicillin resistant Staphylococcus aureus infection; Z88.0 Allergy status to penicillin; Z88.1 Allergy status to other antibiotic agents; Z88.2 Allergy status to sulfonamides

== ENCOUNTER 2019-10-03 20:27 | Emergency (ER) | payer OTHER, MEDICAID ==
[~2019-10-03] VITALS: Ht 170.2 cm; Wt 99.8 kg
[~2019-10-03 20:27] MED LIST changes: +HYDROCORTISONE3011 TOP; +NYSTATIN 100,0015 G1 TOP
[2019-10-03 20:33] VITALS: BP 159/103
[2019-10-03] MEDS ORDERED: NORCO 5-325 TA1 EAC2 PO (21:00)
== END 2019-10-03 21:16 | disposition home or self-care (01) ==
LOC: M.ERS 20:27
DX: S93.492A Sprain of other ligament of left ankle, initial encounter (principal); I10 Essential (primary) hypertension; M32.9 Systemic lupus erythematosus, unspecified; L40.9 Psoriasis, unspecified; F17.210 Nicotine dependence, cigarettes, uncomplicated; Z86.73 Personal history of transient ischemic attack (TIA), and cerebral infarction without residual deficits; Z90.710 Acquired absence of both cervix and uterus; Z90.89 Acquired absence of other organs; Z88.2 Allergy status to sulfonamides; Z88.0 Allergy status to penicillin; Z88.1 Allergy status to other antibiotic agents; Z86.14 Personal history of Methicillin resistant Staphylococcus aureus infection; X50.1XXA Overexertion from prolonged static or awkward postures, initial encounter; Y93.89 Activity, other specified; Y92.89 Other specified places as the place of occurrence of the external cause; Y99.8 Other external cause status

== ENCOUNTER 2019-10-25 20:17 | Emergency (ER) | payer OTHER, MEDICAID ==
[~2019-10-25] VITALS: Ht 170.2 cm; Wt 99.8 kg
[~2019-10-25 20:17] MED LIST changes: +NORCO 5-325 TA1 EAC2 PO
[2019-10-25 20:55] LABS: URINE BILIRUBIN NEGATIVE (Negative); URINE BLOOD TRACE (Negative); URINE CLARITY CLEAR; URINE COLOR YELLOW; URINE GLUCOSE-RANDOM NEGATIVE (Negative); URINE KETONES NEGATIVE (Negative); URINE LEUKOCYTES-REFLEX NEGATIVE (Negative); URINE PROTEIN NEGATIVE (Negative); URINE SPECIFIC GRAVITY >= 1.030 (1.005-1.030); URINE UROBILINOGEN 0.2 E.U./dl (0.2-1.0)
[2019-10-25 21:10] LABS: URINE NITRITE-REFLEX POSITIVE (Negative)
[2019-10-25 21:18] LABS: CASTS None Seen /LPF (None Seen); SQUAMOUS 4-10 Moderate /LPF (0-3)
[2019-10-25 21:19] LABS: BACTERIA-REFLEX >30 Many /HPF (None Seen); CRYSTALS None Seen /LPF (None Seen); URINE RBC 0-2 Rare /HPF (0-2); URINE WBC-REFLEX 6-15 Few /HPF (0-5)
[2019-10-25 21:26] LABS: ABSOLUTE BASOPHILS 0.2 thou/uL (0.0-0.2); ABSOLUTE EOSINOPHILS 0.5 thou/uL (0.0-0.7); ABSOLUTE LYMPHOCYTES 2.7 thou/uL (0.8-5.3); ABSOLUTE MONOCYTES 1.6 thou/uL (0.0-1.2); BASOPHILS 1.2 %; EOSINOPHILS 2.7 %; HEMATOCRIT 45.1 % (37.0-47.0); HEMOGLOBIN 16.1 gm/dL (12.0-15.0); LYMPHOCYTES 14.1 %; MCH 33.6 pg (26.0-34.0); MCHC 35.6 g/dL (28.0-37.0); MCV 94.3 fL (80.0-100.0); MONOCYTES 8.4 %; MPV 10.3 fl. (7.2-11.1); NUCLEATED RBCS 0 /100WBC; PLATELET COUNT* 195 thou/uL (150-400); POLYS 73.6 %; RBC 4.78 mil/uL (4.20-5.00); RDW-CV 13.7 % (10.5-14.5)
[2019-10-25 21:35] LABS: CALCIUM 8.3 mg/dL (8.5-10.1); CREATININE 0.9 mg/dL (0.6-1.3); POTASSIUM 3.1 mmol/L (3.5-5.1)
[2019-10-25 21:40] LABS: ALBUMIN 3.1 g/dL (3.4-5.0); TOTAL BILIRUBIN 0.4 mg/dL (<0.1-1.0); TOTAL PROTEIN 6.7 g/dL (6.4-8.2)
[2019-10-25] MEDS ORDERED: BENTYL 20 MG TA20 M1 PO (22:12)
[2019-10-25] MEDS ORDERED: MACROBID 100 M100 M2 PO (22:12)
[2019-10-25] MEDS ORDERED: GOLYTELY4000 M1 PO (22:12)
[2019-10-25 22:29] VITALS: BP 190/115
== END 2019-10-25 22:35 | disposition home or self-care (01) ==
LOC: M.ERS 20:17
PROVIDERS: Personal Emergency Response Attendant
DX: N39.0 Urinary tract infection, site not specified (principal); K59.00 Constipation, unspecified; I10 Essential (primary) hypertension; F32.9 Major depressive disorder, single episode, unspecified; F17.210 Nicotine dependence, cigarettes, uncomplicated; Z90.710 Acquired absence of both cervix and uterus; Z90.49 Acquired absence of other specified parts of digestive tract; Z86.14 Personal history of Methicillin resistant Staphylococcus aureus infection; Z86.73 Personal history of transient ischemic attack (TIA), and cerebral infarction without residual deficits; Z88.0 Allergy status to penicillin; Z88.1 Allergy status to other antibiotic agents; Z88.2 Allergy status to sulfonamides

== ENCOUNTER 2020-01-01 22:37 | Emergency (ER) | payer OTHER, MEDICAID ==
[~2020-01-01] VITALS: Ht 170.2 cm; Wt 99.8 kg
[~2020-01-01 22:37] MED LIST changes: +BENTYL 20 MG TA20 M1 PO; +MACROBID 100 M100 M2 PO
[2020-01-01] MEDS ORDERED: PREDNISONE 20 M20 M1 PO (23:40)
[2020-01-01] MEDS ORDERED: NORCO 5-325 TA1 EAC2 PO (23:40)
[2020-01-01] MEDS ORDERED: KEFLEX500 M1 PO (23:40)
[2020-01-01 23:49] VITALS: BP 151/70
== END 2020-01-01 23:49 | disposition home or self-care (01) ==
LOC: M.ERS 22:37
DX: L08.9 Local infection of the skin and subcutaneous tissue, unspecified (principal); R22.42 Localized swelling, mass and lump, left lower limb; I10 Essential (primary) hypertension; I25.2 Old myocardial infarction; F17.210 Nicotine dependence, cigarettes, uncomplicated; Z79.899 Other long term (current) drug therapy; Z79.82 Long term (current) use of aspirin; Z88.1 Allergy status to other antibiotic agents; Z88.0 Allergy status to penicillin; Z88.2 Allergy status to sulfonamides; Z86.73 Personal history of transient ischemic attack (TIA), and cerebral infarction without residual deficits; Z90.710 Acquired absence of both cervix and uterus; Z90.49 Acquired absence of other specified parts of digestive tract

== ENCOUNTER 2020-02-28 22:44 | Emergency (ER) | payer OTHER, MEDICAID ==
[~2020-02-28] VITALS: Ht 170.2 cm; Wt 99.8 kg
[2020-02-29 00:11] VITALS: BP 196/122
== END 2020-02-29 00:11 | disposition left against medical advice (07) ==
LOC: M.ERS 22:44
DX: Z53.21 Procedure and treatment not carried out due to patient leaving prior to being seen by health care provider (principal)

== ENCOUNTER 2020-03-03 21:05 | Emergency (ER) | payer OTHER, MEDICAID ==
[~2020-03-03] VITALS: Ht 170.2 cm; Wt 99.8 kg
[2020-03-03] MEDS ORDERED: HYDROXYZINE HCL25 M2 PO (21:28)
[2020-03-03 21:40] VITALS: BP 140/70
== END 2020-03-03 21:41 | disposition home or self-care (01) ==
LOC: M.ERS 21:05
DX: S61.214A Laceration without foreign body of right ring finger without damage to nail, initial encounter (principal); M32.9 Systemic lupus erythematosus, unspecified; F17.210 Nicotine dependence, cigarettes, uncomplicated; Z86.73 Personal history of transient ischemic attack (TIA), and cerebral infarction without residual deficits; Z90.710 Acquired absence of both cervix and uterus; Z90.89 Acquired absence of other organs; Z90.49 Acquired absence of other specified parts of digestive tract; Z86.14 Personal history of Methicillin resistant Staphylococcus aureus infection; Z88.2 Allergy status to sulfonamides; Z88.0 Allergy status to penicillin; Z88.1 Allergy status to other antibiotic agents; W26.8XXA Contact with other sharp object(s), not elsewhere classified, initial encounter; Y93.89 Activity, other specified; Y92.89 Other specified places as the place of occurrence of the external cause; Y99.8 Other external cause status

== ENCOUNTER 2020-03-11 20:12 | Emergency (ER) | payer OTHER, MEDICAID ==
[~2020-03-11] VITALS: Ht 170.2 cm; Wt 99.8 kg
[2020-03-11] MEDS ORDERED: NAPROSYN500 MG PO (21:25)
[2020-03-11 21:49] VITALS: BP 172/76
== END 2020-03-11 21:50 | disposition home or self-care (01) ==
LOC: M.ERS 20:12
DX: M54.6 Pain in thoracic spine (principal); M25.512 Pain in left shoulder; M25.522 Pain in left elbow; M25.532 Pain in left wrist; I10 Essential (primary) hypertension; L40.9 Psoriasis, unspecified; I25.2 Old myocardial infarction; F17.210 Nicotine dependence, cigarettes, uncomplicated; Z90.89 Acquired absence of other organs; Z90.49 Acquired absence of other specified parts of digestive tract; Z86.73 Personal history of transient ischemic attack (TIA), and cerebral infarction without residual deficits; Z90.711 Acquired absence of uterus with remaining cervical stump; Z79.899 Other long term (current) drug therapy; Z79.82 Long term (current) use of aspirin; Z88.0 Allergy status to penicillin; Z88.2 Allergy status to sulfonamides; Z88.1 Allergy status to other antibiotic agents; W00.0XXA Fall on same level due to ice and snow, initial encounter; Y93.89 Activity, other specified; Y92.89 Other specified places as the place of occurrence of the external cause; Y99.8 Other external cause status

== ENCOUNTER 2020-04-06 23:09 | Emergency (ER) | payer OTHER, MEDICAID ==
[~2020-04-06] VITALS: Ht 170.2 cm; Wt 99.8 kg
[~2020-04-06 23:09] MED LIST changes: +NAPROSYN500 MG PO
[2020-04-07] LABS: ABSOLUTE BASOPHILS 0.1 thou/uL (0.0-0.2); ABSOLUTE EOSINOPHILS 0.7 thou/uL (0.0-0.7); ABSOLUTE LYMPHOCYTES 2.8 thou/uL (0.8-5.3); ABSOLUTE MONOCYTES 1.1 thou/uL (0.0-1.2); BASOPHILS 0.9 %; EOSINOPHILS 4.9 %; HEMOGLOBIN 16.6 gm/dL (12.0-15.0); LYMPHOCYTES 18.7 %; MCH 32.4 pg (26.0-34.0); MCHC 35.3 g/dL (28.0-37.0); MCV 91.7 fL (80.0-100.0); MONOCYTES 7.6 %; MPV 9.6 fl. (7.2-11.1); NUCLEATED RBCS 0 /100WBC; PLATELET COUNT* 197 thou/uL (150-400); POLYS 67.9 %; RBC 5.13 mil/uL (4.20-5.00); RDW-CV 13.5 % (10.5-14.5); WBC 14.7 thou/uL (4.0-11.0)
[2020-04-07 00:07] LABS: CALCIUM 9.4 mg/dL (8.5-10.1); CREATININE 0.9 mg/dL (0.6-1.3); POTASSIUM 3.4 mmol/L (3.5-5.1)
[2020-04-07] MEDS ORDERED: CATAPRES0.1 MG PO (01:22)
[2020-04-07] MEDS ORDERED: COREG25 M1 PO (01:22)
[2020-04-07 01:39] VITALS: BP 173/89
--- NOTE | 2020-04-07 15:59 | EKG ---
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: : 1975 Requested By: Janelle Reece Order Number: [id number] MD: Floyd Bridges Measurements Intervals [place] Rate: 77 P: 60 MT: 167 QRS: 48 QRSD: 97 T: 105 QT: 410 QTc: 465 Interpretive Statements Sinus rhythm Nonspecific T abnormalities, lateral leads Baseline wander in lead(s) V5 Compared to ECG 04/21/2019 21:35:22 T-wave abnormality now present Electronically Signed On 04-07-2020 15:59:18 DIRECTOR GAME by Floyd Bridges [email or web address] <ELECTRONICALLY SIGNED> By: Floyd Bridges MD, FACC 04/07/20 1559 2343 2343 Floyd Bridges MD, [facility] /EPI
== END 2020-04-07 01:40 | disposition home or self-care (01) ==
LOC: M.ERS 23:09
PROVIDERS: Emergency Medicine
DX: I16.0 Hypertensive urgency (principal); I25.2 Old myocardial infarction; F17.210 Nicotine dependence, cigarettes, uncomplicated; Z90.710 Acquired absence of both cervix and uterus; Z90.89 Acquired absence of other organs; Z79.82 Long term (current) use of aspirin; Z79.899 Other long term (current) drug therapy; Z88.0 Allergy status to penicillin; Z88.1 Allergy status to other antibiotic agents; Z88.2 Allergy status to sulfonamides

== ENCOUNTER 2020-04-18 22:56 | Emergency (ER) | payer OTHER, MEDICAID ==
[~2020-04-18] VITALS: Ht 170.2 cm; Wt 99.8 kg
[~2020-04-18 22:56] MED LIST changes: +CATAPRES0.1 MG PO; +COREG25 M1 PO
[2020-04-18 23:02] VITALS: BP 189/113
== END 2020-04-18 23:31 | disposition home or self-care (01) ==
LOC: M.ERS 22:56
DX: G43.909 Migraine, unspecified, not intractable, without status migrainosus (principal); I10 Essential (primary) hypertension; L40.9 Psoriasis, unspecified; M32.9 Systemic lupus erythematosus, unspecified; F17.210 Nicotine dependence, cigarettes, uncomplicated; Z88.2 Allergy status to sulfonamides; Z90.710 Acquired absence of both cervix and uterus; Z90.89 Acquired absence of other organs; Z86.14 Personal history of Methicillin resistant Staphylococcus aureus infection; Z90.49 Acquired absence of other specified parts of digestive tract; Z88.1 Allergy status to other antibiotic agents; Z86.73 Personal history of transient ischemic attack (TIA), and cerebral infarction without residual deficits

== ENCOUNTER 2020-05-08 19:57 | Emergency (ER) | payer OTHER, MEDICAID ==
[~2020-05-08] VITALS: Ht 170.2 cm; Wt 99.8 kg
[2020-05-08] MEDS ORDERED: NAPROSYN500 MG PO (20:58)
[2020-05-08] MEDS ORDERED: MEDROLDOSEPACK PO (20:58)
[2020-05-08] MEDS ORDERED: FLEXERIL PO (20:58)
[2020-05-08 21:30] VITALS: BP 189/107
== END 2020-05-08 21:32 | disposition home or self-care (01) ==
LOC: M.ERS 19:57
DX: S46.811A Strain of other muscles, fascia and tendons at shoulder and upper arm level, right arm, initial encounter (principal); M94.0 Chondrocostal junction syndrome [Tietze]; I10 Essential (primary) hypertension; L40.9 Psoriasis, unspecified; M32.9 Systemic lupus erythematosus, unspecified; F17.210 Nicotine dependence, cigarettes, uncomplicated; Z86.14 Personal history of Methicillin resistant Staphylococcus aureus infection; Z88.1 Allergy status to other antibiotic agents; Z90.710 Acquired absence of both cervix and uterus; Z90.89 Acquired absence of other organs; Z90.49 Acquired absence of other specified parts of digestive tract; Z86.73 Personal history of transient ischemic attack (TIA), and cerebral infarction without residual deficits; Z88.2 Allergy status to sulfonamides; Z88.0 Allergy status to penicillin; W22.8XXA Striking against or struck by other objects, initial encounter; Y93.89 Activity, other specified; Y92.89 Other specified places as the place of occurrence of the external cause; Y99.8 Other external cause status

== ENCOUNTER 2020-05-31 17:58 | Emergency (ER) | payer OTHER, MEDICAID ==
[~2020-05-31] VITALS: Ht 170.2 cm; Wt 99.8 kg
[2020-05-31 18:23] LABS: ABSOLUTE BASOPHILS 0.1 thou/uL (0.0-0.2); ABSOLUTE EOSINOPHILS 0.5 thou/uL (0.0-0.7); ABSOLUTE LYMPHOCYTES 2.5 thou/uL (0.8-5.3); ABSOLUTE MONOCYTES 1.1 thou/uL (0.0-1.2); BASOPHILS 0.9 %; EOSINOPHILS 3.5 %; HEMATOCRIT 47.1 % (37.0-47.0); HEMOGLOBIN 16.6 gm/dL (12.0-15.0); LYMPHOCYTES 17.7 %; MCH 32.7 pg (26.0-34.0); MCHC 35.2 g/dL (28.0-37.0); MCV 92.9 fL (80.0-100.0); MPV 8.6 fl. (7.2-11.1); NUCLEATED RBCS 0 /100WBC; PLATELET COUNT* 220 thou/uL (150-400); POLYS 69.9 %; RBC 5.07 mil/uL (4.20-5.00); WBC 14.3 thou/uL (4.0-11.0)
[2020-05-31 18:31] LABS: CALCIUM 8.9 mg/dL (8.5-10.1); CREATININE 0.9 mg/dL (0.6-1.3); POTASSIUM 3.2 mmol/L (3.5-5.1)
[2020-05-31 18:35] LABS: ALBUMIN 3.4 g/dL (3.4-5.0); TOTAL BILIRUBIN 0.4 mg/dL (<0.1-1.0); TOTAL PROTEIN 7.6 g/dL (6.4-8.2)
[2020-05-31 18:36] LABS: APTT 39.7 Seconds (25.0-31.3); PROTIME 10.3 Seconds (9.20-11.50)
[2020-05-31 19:03] VITALS: BP 167/120
--- NOTE | 2020-06-01 10:10 | EKG ---
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 : 1975 Requested By: Tremaine Crowe Order Number: [id number] MD: Bernardo Dubon Measurements Intervals [place] Rate: 69 P: 60 MT: 174 QRS: 31 QRSD: 90 T: 63 QT: 447 QTc: 479 Interpretive Statements Sinus rhythm Borderline prolonged QT interval Compared to ECG 04/06/2020 23:43:30 T-wave abnormality no longer present Electronically Signed On 06-01-2020 10:10:26 CDT by Bernardo Dubon [email or web address] <ELECTRONICALLY SIGNED> By: Bernardo Dubon MD, [facility] 06/01/20 1010 181 181 Bernardo Dubon MD, [facility] /EPI
== END 2020-05-31 19:04 | disposition home or self-care (01) ==
LOC: M.ERS 17:58
PROVIDERS: Family Medicine
DX: R20.2 Paresthesia of skin (principal); I10 Essential (primary) hypertension; L40.9 Psoriasis, unspecified; M32.9 Systemic lupus erythematosus, unspecified; Z88.0 Allergy status to penicillin; Z88.1 Allergy status to other antibiotic agents; Z88.2 Allergy status to sulfonamides; Z86.73 Personal history of transient ischemic attack (TIA), and cerebral infarction without residual deficits; Z90.89 Acquired absence of other organs; Z90.710 Acquired absence of both cervix and uterus; Z90.49 Acquired absence of other specified parts of digestive tract; Z86.14 Personal history of Methicillin resistant Staphylococcus aureus infection

== ENCOUNTER 2020-06-28 17:34 | Emergency (ER) | payer OTHER, MEDICAID ==
[~2020-06-28] VITALS: Ht 170.2 cm; Wt 54.4 kg
[2020-06-28 17:55] VITALS: BP 191/102
[2020-06-28] MEDS ORDERED: CIPROFLOXIN HC2.5 M1 OPHTHALMIC (17:56)
== END 2020-06-28 18:05 | disposition home or self-care (01) ==
LOC: M.ERS 17:34
DX: H10.9 Unspecified conjunctivitis (principal); I10 Essential (primary) hypertension; L40.9 Psoriasis, unspecified; M32.9 Systemic lupus erythematosus, unspecified; F17.210 Nicotine dependence, cigarettes, uncomplicated; Z88.1 Allergy status to other antibiotic agents; Z88.0 Allergy status to penicillin; Z88.2 Allergy status to sulfonamides; Z86.73 Personal history of transient ischemic attack (TIA), and cerebral infarction without residual deficits; Z90.710 Acquired absence of both cervix and uterus; Z90.49 Acquired absence of other specified parts of digestive tract; Z90.89 Acquired absence of other organs; Z86.14 Personal history of Methicillin resistant Staphylococcus aureus infection

== ENCOUNTER 2020-09-11 03:03 | Emergency (ER) | payer OTHER, MEDICAID ==
[~2020-09-11] VITALS: Ht 170.2 cm; Wt 99.8 kg
[~2020-09-11 03:03] MED LIST changes: +CIPROFLOXIN HC2.5 M1 OPHTHALMIC
[2020-09-11 03:41] LABS: URINE BILIRUBIN NEGATIVE (Negative); URINE BLOOD TRACE (Negative); URINE CLARITY CLEAR; URINE COLOR STRAW; URINE GLUCOSE-RANDOM NEGATIVE (Negative); URINE KETONES NEGATIVE (Negative); URINE LEUKOCYTES-REFLEX TRACE (Negative); URINE NITRITE-REFLEX NEGATIVE (Negative); URINE PROTEIN NEGATIVE (Negative); URINE SPECIFIC GRAVITY 1.015 (1.005-1.030); URINE UROBILINOGEN 0.2 E.U./dl (0.2-1.0)
[2020-09-11 03:44] LABS: ABSOLUTE BASOPHILS 0.2 thou/uL (0.0-0.2); ABSOLUTE EOSINOPHILS 0.5 thou/uL (0.0-0.7); ABSOLUTE LYMPHOCYTES 3.1 thou/uL (0.8-5.3); ABSOLUTE NEUTROPHILS 10.4 thou/uL (1.6-8.1); BASOPHILS 1.4 %; EOSINOPHILS 3.3 %; HEMATOCRIT 41.6 % (37.0-47.0); HEMOGLOBIN 15.1 gm/dL (12.0-15.0); LYMPHOCYTES 20.3 %; MCH 34.1 pg (26.0-34.0); MCHC 36.4 g/dL (28.0-37.0); MCV 93.7 fL (80.0-100.0); MONOCYTES 6.7 %; MPV 9.6 fl. (7.2-11.1); NUCLEATED RBCS 0 /100WBC; PLATELET COUNT* 186 thou/uL (150-400); POLYS 68.3 %; RBC 4.44 mil/uL (4.20-5.00); RDW-CV 13.7 % (10.5-14.5); WBC 15.2 thou/uL (4.0-11.0)
[2020-09-11 03:57] LABS: CREATININE 0.8 mg/dL (0.6-1.3); POTASSIUM 3.1 mmol/L (3.5-5.1)
[2020-09-11 04:07] LABS: ALBUMIN 3.1 g/dL (3.4-5.0); MAGNESIUM 1.9 mg/dL (1.8-2.4); TOTAL BILIRUBIN 0.4 mg/dL (<0.1-1.0); TOTAL PROTEIN 6.9 g/dL (6.4-8.2)
[2020-09-11 04:35] LABS: CASTS None Seen /LPF (None Seen); SQUAMOUS 4-10 Moderate /LPF (0-3)
[2020-09-11 04:36] LABS: BACTERIA-REFLEX 1-9 Few /HPF (None Seen); CRYSTALS None Seen /LPF (None Seen); URINE RBC None Seen /HPF (0-2); URINE WBC-REFLEX 0-5 Rare /HPF (0-5)
[2020-09-11 07:08] VITALS: BP 148/91
--- NOTE | 2020-09-12 11:43 | EKG ---
[place] [address] ELECTROCARDIOGRAM REPORT Name: YONIS HILLMAN Room: 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: : 1975 Requested By: Janelle Reece Order Number: [id number] MD: Luis E Bansal Measurements Intervals [place] Rate: 70 P: 63 OR: 163 QRS: 34 QRSD: 95 T: 86 QT: 421 QTc: 455 Interpretive Statements Sinus rhythm Consider left atrial enlargement Borderline T abnormalities, lateral leads Compared to ECG 05/31/2020 18:13:20 no change Electronically Signed On 09-12-2020 11:43:32 CDT by Luis E Bansal [email or web address] <ELECTRONICALLY SIGNED> By: Luis E Bansal MD, [facility] 09/12/20 1143 0305 0305 Luis E Bansal MD, [facility] /EPI
== END 2020-09-11 07:11 | disposition home or self-care (01) ==
LOC: M.ERS 03:03
PROVIDERS: Emergency Medicine
DX: I10 Essential (primary) hypertension (principal); R07.89 Other chest pain; R10.13 Epigastric pain; F17.210 Nicotine dependence, cigarettes, uncomplicated; Z88.1 Allergy status to other antibiotic agents; Z88.0 Allergy status to penicillin; Z88.2 Allergy status to sulfonamides; Z86.73 Personal history of transient ischemic attack (TIA), and cerebral infarction without residual deficits; Z90.710 Acquired absence of both cervix and uterus; Z90.89 Acquired absence of other organs; Z90.49 Acquired absence of other specified parts of digestive tract; Z86.14 Personal history of Methicillin resistant Staphylococcus aureus infection; M32.9 Systemic lupus erythematosus, unspecified

== ENCOUNTER 2020-10-25 13:12 | Emergency (ER) | payer OTHER, MEDICAID ==
[~2020-10-25] VITALS: Ht 170.2 cm; Wt 97.1 kg
[2020-10-25] MEDS ORDERED: HYDROCODON-ACE1 EAC7 PO (13:35)
[2020-10-25 14:07] VITALS: BP 188/99
== END 2020-10-25 14:08 | disposition home or self-care (01) ==
LOC: M.ERS 13:12
DX: S90.32XA Contusion of left foot, initial encounter (principal); I10 Essential (primary) hypertension; Z88.1 Allergy status to other antibiotic agents; Z88.2 Allergy status to sulfonamides; Z88.0 Allergy status to penicillin; W23.0XXA Caught, crushed, jammed, or pinched between moving objects, initial encounter; Y93.89 Activity, other specified; Y92.89 Other specified places as the place of occurrence of the external cause; Y99.8 Other external cause status

== ENCOUNTER 2021-01-25 18:35 | Emergency (ER) | payer OTHER, MEDICAID ==
[~2021-01-25] VITALS: Ht 172.7 cm; Wt 99.8 kg
[~2021-01-25 18:35] MED LIST changes: +HYDROCODON-ACE1 EAC7 PO
[2021-01-25] MEDS ORDERED: CIPROFLOXIN HC2.5 M1 OTIC (18:59)
[2021-01-25 19:10] VITALS: BP 202/96
== END 2021-01-25 19:11 | disposition home or self-care (01) ==
LOC: M.ERS 18:35
DX: S05.02XA Injury of conjunctiva and corneal abrasion without foreign body, left eye, initial encounter (principal); I10 Essential (primary) hypertension; F17.210 Nicotine dependence, cigarettes, uncomplicated; F32.9 Major depressive disorder, single episode, unspecified; Z90.710 Acquired absence of both cervix and uterus; Z90.89 Acquired absence of other organs; Z90.49 Acquired absence of other specified parts of digestive tract; Z79.899 Other long term (current) drug therapy; Z88.0 Allergy status to penicillin; Z88.2 Allergy status to sulfonamides; Z88.1 Allergy status to other antibiotic agents; X08.8XXA Exposure to other specified smoke, fire and flames, initial encounter; Y93.89 Activity, other specified; Y92.89 Other specified places as the place of occurrence of the external cause; Y99.8 Other external cause status

== ENCOUNTER 2021-02-12 22:09 | Emergency (ER) | payer OTHER, MEDICAID ==
[~2021-02-12] VITALS: Ht 170.2 cm; Wt 99.8 kg
[~2021-02-12 22:09] MED LIST changes: +CIPROFLOXIN HC2.5 M1 OTIC
[2021-02-12] MEDS ORDERED: OXYBUTYNIN 5 MG5 M2 PO (22:17)
[2021-02-12] MEDS ORDERED: HYDROXYZINE HCL50 MG PO (22:18)
[2021-02-12 22:35] LABS: ABSOLUTE BASOPHILS 0.1 thou/uL (0.0-0.2); ABSOLUTE EOSINOPHILS 0.5 thou/uL (0.0-0.7); ABSOLUTE LYMPHOCYTES 2.5 thou/uL (0.8-5.3); ABSOLUTE MONOCYTES 0.8 thou/uL (0.0-1.2); ABSOLUTE NEUTROPHILS 9.3 thou/uL (1.6-8.1); BASOPHILS 0.9 %; HEMATOCRIT 43.8 % (37.0-47.0); HEMOGLOBIN 15.4 gm/dL (12.0-15.0); LYMPHOCYTES 18.6 %; MCHC 35.1 g/dL (28.0-37.0); MONOCYTES 6.1 %; MPV 9.2 fl. (7.2-11.1); NUCLEATED RBCS 0 /100WBC; PLATELET COUNT* 204 thou/uL (150-400); POLYS 70.4 %; RBC 4.81 mil/uL (4.20-5.00); RDW-CV 13.5 % (10.5-14.5); WBC 13.3 thou/uL (4.0-11.0)
[2021-02-12 22:40] LABS: CALCIUM 9.2 mg/dL (8.5-10.1); CREATININE 1.1 mg/dL (0.6-1.3); POTASSIUM 3.2 mmol/L (3.5-5.1)
[2021-02-12 22:44] LABS: ALBUMIN 3.2 g/dL (3.4-5.0); TOTAL BILIRUBIN 0.3 mg/dL (<0.1-1.0); TOTAL PROTEIN 7.2 g/dL (6.4-8.2)
[2021-02-13] MEDS ORDERED: ALBUTEROL2.5 MG/31 INH (01:21)
[2021-02-13] MEDS ORDERED: PREDNISONE50 MG PO (01:21)
[2021-02-13 01:29] VITALS: BP 144/79
--- NOTE | 2021-02-15 08:53 | EKG ---
[place] [address] ELECTROCARDIOGRAM REPORT Name: YONIS HILLMAN Room: [facility]#: [id number] Admission: 02/12/21 Attend Phys: Discharge: 02/13/21 Date of : 71 Date of Service: 02/12/212211 Report #: [id number] THIS REPORT FOR: //name// [facility] ED Test Date: 2021-02-12 Test Time: 22:12:22 Pat Name: YONIS HILLMAN Department: Room: Gender: F Program Manager Slp: : 1975 Requested By: Janelle Reece Order Number: [id number] MD: Luis E Bansal Measurements Intervals [place] Rate: 75 P: 53 ME: 172 QRS: 29 QRSD: 90 T: 87 QT: 433 QTc: 484 Interpretive Statements Sinus rhythm Probable left atrial enlargement Nonspecific T abnrm, anterolateral leads Compared to ECG 09/11/2020 03:05:30 no change Electronically Signed On 02-15-2021 8:53:30 MANAGER MATERIAL by Luis E Bansal [email or web address] <ELECTRONICALLY SIGNED> By: Luis E Bansal MD, [facility] 02/15/21 0853 11 11 Luis E Bansal MD, [facility] /EPI
== END 2021-02-13 01:31 | disposition home or self-care (01) ==
LOC: M.ERS 22:09
PROVIDERS: Emergency Medicine
DX: J06.9 Acute upper respiratory infection, unspecified (principal); Z20.822 Contact with and (suspected) exposure to COVID-19; R07.89 Other chest pain; I10 Essential (primary) hypertension; F32.9 Major depressive disorder, single episode, unspecified; F17.210 Nicotine dependence, cigarettes, uncomplicated; Z90.49 Acquired absence of other specified parts of digestive tract; Z90.89 Acquired absence of other organs; Z79.899 Other long term (current) drug therapy; Z90.710 Acquired absence of both cervix and uterus; Z88.0 Allergy status to penicillin; Z88.2 Allergy status to sulfonamides; Z88.1 Allergy status to other antibiotic agents

== ENCOUNTER 2021-03-05 21:00 | Emergency (ER) | payer OTHER, MEDICAID ==
[~2021-03-05] VITALS: Ht 170.2 cm; Wt 96.2 kg
[~2021-03-05 21:00] MED LIST changes: +ALBUTEROL2.5 MG/31 INH; +HYDROXYZINE HCL50 MG PO; +OXYBUTYNIN 5 MG5 M2 PO
[2021-03-05 23:17] VITALS: BP 175/70
== END 2021-03-05 23:19 | disposition left against medical advice (07) ==
LOC: M.ERS 21:00
DX: Z53.21 Procedure and treatment not carried out due to patient leaving prior to being seen by health care provider (principal)

== ENCOUNTER 2021-03-18 20:37 | Emergency (ER) | payer OTHER, MEDICAID ==
[~2021-03-18] VITALS: Ht 170.2 cm; Wt 95.3 kg
[2021-03-18 21:35] LABS: ABSOLUTE BASOPHILS 0.1 thou/uL (0.0-0.2); ABSOLUTE EOSINOPHILS 0.4 thou/uL (0.0-0.7); ABSOLUTE LYMPHOCYTES 2.8 thou/uL (0.8-5.3); ABSOLUTE MONOCYTES 1.2 thou/uL (0.0-1.2); ABSOLUTE NEUTROPHILS 8.6 thou/uL (1.6-8.1); BASOPHILS 1.1 %; EOSINOPHILS 3.3 %; HEMATOCRIT 42.9 % (37.0-47.0); HEMOGLOBIN 14.8 gm/dL (12.0-15.0); LYMPHOCYTES 21.1 %; MCH 31.9 pg (26.0-34.0); MCHC 34.6 g/dL (28.0-37.0); MCV 92.2 fL (80.0-100.0); MONOCYTES 9.1 %; MPV 9.3 fl. (7.2-11.1); NUCLEATED RBCS 0 /100WBC; PLATELET COUNT* 192 thou/uL (150-400); POLYS 65.4 %; RBC 4.66 mil/uL (4.20-5.00); RDW-CV 13.8 % (10.5-14.5); WBC 13.1 thou/uL (4.0-11.0)
[2021-03-18 21:43] LABS: CALCIUM 8.5 mg/dL (8.5-10.1); CREATININE 0.8 mg/dL (0.6-1.3); POTASSIUM 3.3 mmol/L (3.5-5.1)
[2021-03-18 21:52] LABS: ALBUMIN 3.1 g/dL (3.4-5.0); MAGNESIUM 1.9 mg/dL (1.8-2.4); TOTAL BILIRUBIN 0.3 mg/dL (<0.1-1.0); TOTAL PROTEIN 6.9 g/dL (6.4-8.2)
[2021-03-18] MEDS ORDERED: CLEOCIN HCL300 MG PO (22:45)
[2021-03-18] MEDS ORDERED: TESSALON PERLE100 MG PO (22:45)
[2021-03-18] MEDS ORDERED: HYDROCODON-ACE1 EAC8 PO (23:12)
[2021-03-18 23:31] VITALS: BP 149/93
== END 2021-03-18 23:32 | disposition home or self-care (01) ==
LOC: M.ERS 20:37
PROVIDERS: Nurse Practitioner Family
DX: S16.1XXA Strain of muscle, fascia and tendon at neck level, initial encounter (principal); R05.9 Cough, unspecified; G89.29 Other chronic pain; M54.42 Lumbago with sciatica, left side; M54.41 Lumbago with sciatica, right side; E87.6 Hypokalemia; I10 Essential (primary) hypertension; F32.9 Major depressive disorder, single episode, unspecified; F17.210 Nicotine dependence, cigarettes, uncomplicated; Z90.710 Acquired absence of both cervix and uterus; Z90.89 Acquired absence of other organs; Z90.49 Acquired absence of other specified parts of digestive tract; Z79.899 Other long term (current) drug therapy; Z88.0 Allergy status to penicillin; Z88.2 Allergy status to sulfonamides; Z88.1 Allergy status to other antibiotic agents; W19.XXXA Unspecified fall, initial encounter; Y93.89 Activity, other specified; Y92.89 Other specified places as the place of occurrence of the external cause; Y99.8 Other external cause status

== ENCOUNTER → 2021-04-17 | Emergency (ER) | payer OTHER, MEDICAID ==
[~2021-04-17] VITALS: Ht 170.2 cm; Wt 99.8 kg
[~2021-04-17] MED LIST changes: +PREDNISONE 20 M20 MG PO
[2021-04-17 20:35] VITALS: BP 169/104
== END ==
LOC: M.ERS 20:07
DX: J18.9 Pneumonia, unspecified organism (principal); J44.1 Chronic obstructive pulmonary disease with (acute) exacerbation; K02.9 Dental caries, unspecified; H92.03 Otalgia, bilateral; I10 Essential (primary) hypertension; F32.9 Major depressive disorder, single episode, unspecified; F17.210 Nicotine dependence, cigarettes, uncomplicated; Z90.710 Acquired absence of both cervix and uterus; Z90.49 Acquired absence of other specified parts of digestive tract; Z86.73 Personal history of transient ischemic attack (TIA), and cerebral infarction without residual deficits; Z90.89 Acquired absence of other organs; I25.2 Old myocardial infarction; L40.9 Psoriasis, unspecified; Z79.899 Other long term (current) drug therapy; Z88.1 Allergy status to other antibiotic agents; Z88.0 Allergy status to penicillin; Z88.2 Allergy status to sulfonamides